=== PATIENT | female | born 1965 | race Caucasian/White ===

== ENCOUNTER 2023-05-15 08:14 | Outpatient (CLI) | payer BC, SELFPAY | END 2023-05-15 08:15 | disposition home or self-care (01) | LOC: NFLDREF 05-17 20:10 | PROVIDERS: PCP Family Medicine; Referring Provider Family Medicine; Visit Provider Family Medicine | DX: E78.5 Hyperlipidemia, unspecified (principal); Z13.1 Encounter for screening for diabetes mellitus; I10 Essential (primary) hypertension; E66.9 Obesity, unspecified; Z13.29 Encounter for screening for other suspected endocrine disorder | CPT/HCPCS: 80048; 80061; 83036; 84439 ==

== ENCOUNTER 2024-05-24 15:09 | Outpatient (CLI) | payer BC, SELFPAY | END 2024-05-24 15:10 | disposition home or self-care (01) | LOC: LKVREF 15:10 | PROVIDERS: PCP Family Medicine; Visit Provider Family Medicine | DX: I10 Essential (primary) hypertension (principal) | CPT/HCPCS: 80048 ==